=== PATIENT | male | born 1955 ===

== ENCOUNTER 2020-11-25 08:44 | Outpatient (REF) | payer MEDICARE, SELFPAY ==
--- NOTE | 2020-11-28 08:21 | MHC.AU.AEV ---
Adult Audiological Evaluation Date of Visit: 11/25/20 Reason for Appointment: Patient reports gradually increasing hearing difficulty over the last several years. Patient has 40 years of occupational noise exposure. 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 He feels his hearing difficulty is starting to impact his daily life. Does patient feel they have a hearing loss?: Yes If Yes, Which Ear?: Both Ears Has hearing been tested previously?: No Hearing Handicap Inventory Does a hearing problem cause you to feel embarrassed when meeting new people?: Sometimes Does a hearing problem cause you to feel frustrated when talking to members of your family?: Sometimes Do you have difficulty when someone speaks in a whisper?: Yes Do you feel handicapped by a hearing problem?: Sometimes Does a hearing problem cause you difficulty when visiting friends, relatives, or neighbors?: Sometimes Does a hearing problem cause you to attend hinduism service services less often than you would like?: No Does a hearing problem cause you to have arguments with family members?: Sometimes Does a hearing problem cause you difficulty when listening to TV or radio?: Sometimes Do you feel that any difficult with your hearing limits or hampers your personal or social life?: Sometimes Does a hearing problem cause you difficulty when in a restaurants with relatives or friends?: Sometimes HHIE SCORE: 20 Based on HHIE score, patient has: Mild to moderate perceived hearing handicap Ear History: Ear Deformity: None Reported Recent Ear Drainage: None Reported Recent Ear Pain: None Reported Family History of Hearing Loss?: Yes: Mother Recent Ear Infections: None Reported Ear Infections in Childhood: None Reported History of Ear Wax Buildup: None Reported Previous Ear Surgery: None Reported Bothersome Tinnitus/Ringing/Noises in Ears: Both Ears Ear used on the phone: Right Ear Blocked/Full Sensation in Ear(s): None Reported 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 Medical History: Medical History: History of colon cancer Otoscopy: Right Ear: Unremarkable Left Ear: Unremarkable Tympanometry: Tympanometry performed due to: To assess integrity of the middle ear system Right Ear: Hypercompliant Middle Ear System (Type Ad) Left Ear: Normal Middle Ear System (Type A) Hearing Evaluation: Transducer(s) Used: Circumaural Headphones Method: Conventional Audiometry Stimuli Used: Pure Tones Right Ear: Description of Hearing: Mild to severe sensorineural hearing loss (slight low frequency conductive component) Left Ear: Description of Hearing: Borderline/mild to severe sensorineural hearing loss Speech Recognition Threshold (SRT): Method Used: Recorded Lists Stimuli Used: Spondee Words Right Ear: 40 dBHL Left Ear: 25 dBHL Word Discrimination: Method: Recorded Lists Word Lists Used:: W-22 Right Ear: 88% at 80 dBHL Left Ear: 88% at 80 dBHL Most Comfortable Level (MCL): Right Ear: 80 dBHL Left Ear: 80 dBHL: Recommendations: Audiological re-evaluation in one year. Trial with amplification is recommended. See Hearing Aid Evaluation report for more information. Referral to Ear, Nose, and Throat may be warranted to discuss asymmetries in low and high frequency thresholds and hypercompliant right middle ear system. Diagnosis: Primary Diagnosis: H90.3 Bilateral Sensorineural Hearing Loss Signature: Provider: Alexis Molina, CCC-A
--- NOTE | 2020-11-28 08:22 | MHC.AU.HAS ---
Hearing Aid Evaluation Date of Visit: 11/25/20 Historical Information: Description of Hearing: Right: Mild to severe sensorineural hearing loss Left: Borderline/mild to severe sensorineural hearing loss Summary: Patient was seen for audiological evaluation (see separate report for details). Patient is interested in amplification. Options were discussed. Hearing Aid Prescription: Based on the individual?s shared listening needs, communication environments, dexterity, desire for connectivity, and personal preferences, the following prescription for amplification has been made: Right ear: Financial Management Analyst: Phonak Model: Audeo P70-R Battery Size: Rechargeable Color: Black Human Relations Manager: 1M Left ear: Financial Management Analyst: Phonak Model: Audeo P70-R Battery Size: Rechargeable Color: Black Human Relations Manager: 1M Action Taken/Action Needed: Prior authorization to be requested Medical Clearance to be requested from PCP/ENT Hearing Instrument Fitting to be scheduled when materials arrive Primary Diagnosis: H90.3 Bilateral Sensorineural Hearing Loss Signature: Provider: Alexis Molina, SUREKHA-A
--- NOTE | 2020-11-28 08:23 | MHC.AU.MED ---
Medical Clearance for Hearing Instrumentation Date: 11/28/20 Patient Name: GALEN POOLE Date of : 1955 Referring Provider: RIANA Aguilera We have seen your patient on 11/25/20 and have determined that they are a candidate for amplification (See accompanying report). Specifically, they would benefit from: Hearing aid use in both ears There is a statute that addresses Medical Evaluation Requirements prior to fitting a patient with a hearing aid. According to [place] statute 265 CMR:6.03(1), (a) General. Except as provided in 265 CMR 6.03(1)(b), a test desk trouble locator shall not sell a hearing aid unless the prospective user has presented to the test desk trouble locator a written statement signed by a licensed physician that states that the patient's hearing loss has been medically evaluated and the patient may be considered a candidate for a hearing aid. The medical evaluation must have taken place within the preceding six months. Please note: Due to the [place] Statute referenced above, we cannot accept a signature other than that of a licensed physician. [place] and [place] signatures cannot be accepted. I am in agreement with the above recommendation. There is no medical contraindication for hearing instrumentation. Physician Signature Date Physician Name (Printed)
== END 2020-11-25 08:45 | disposition home or self-care (01) ==
LOC: HO.SH 08:44
PROVIDERS: Visit Provider Physician Assistant Medical
DX: Z46.1 Encounter for fitting and adjustment of hearing aid (principal); H90.3 Sensorineural hearing loss, bilateral
CPT/HCPCS: 92557; 92567; 92591

== ENCOUNTER 2020-12-23 11:05 | Outpatient (REF) | payer MEDICARE, SELFPAY ==
--- NOTE | 2020-12-23 12:41 | MHC.AU.HFA ---
Hearing Instrument Fitting- Adult- Binaural Date of Visit: 12/23/20 Hearing Instruments Dispensed: Right Ear: Biometrics Experimentalist: Phonak Model: Audeo P70-R Serial Number: [id number] Repair Warranty: 03/13/2024 Loss and Damage Warranty: 03/13/2024 Battery Size: Rechargeable Color: Black Prisoner Classification Interviewer: 1M Type of Dome: Small Open Type of Wax Guard: CeruShield Left Ear: Biometrics Experimentalist: Phonak Model: Audeo P70-R Serial Number: [id number] Repair Warranty: 03/13/2024 Loss and Damage Warranty: 03/13/2024 Battery Size: Rechargeable Color: Black Prisoner Classification Interviewer: 1M Type of Dome: Small Open Type of Wax Guard: CeruShield Summary of Fitting: Feedback market asset protection manager run. Verifit performed and levels adjusted to better reach targets. Target gain set to 90% for patient comfort, as he felt 100% was too loud. Patient was pleased with the sound of the instruments. Hearing aid care and use were discussed and practiced. Patient does not currently have a smartphone. In the near future he is looking to get one, and will let us know if he needs assistance pairing it. Recommendations: A hearing instrument follow-up was scheduled. Diagnosis Code(s): Primary Diagnosis: H90.3 Bilateral Sensorineural Hearing Loss Signature: Provider: Alexis Molina, SUREKHA-A
== END 2020-12-23 11:06 | disposition home or self-care (01) ==
LOC: HO.HAP 11:05
PROVIDERS: Visit Provider Physician Assistant Medical
DX: Z46.1 Encounter for fitting and adjustment of hearing aid (principal); H90.3 Sensorineural hearing loss, bilateral
CPT/HCPCS: V5011; V5020; V5160; V5261